=== PATIENT | female | born 1955 | race Caucasian/White ===

== ENCOUNTER 2024-01-25 08:45 | Day surgery (SDC) | payer OTHER ==
[~2024-01-25 08:45] MED LIST: Sodium Chloride 0.9% 10 ML Syringe FLUSH PRN; Sodium Chloride 0.9% 2.5 ML Syringe FLUSH PRN; Sodium Chloride 0.9% 20 ML SDV IV PRN
[2024-01-25] MEDS: Lactated Ringers 1,000 ML IV SCH (09:16)
[2024-01-25] MEDS ORDERED: Lidocaine 2% 5 ML SDV ONE (10:34)
[2024-01-25] MEDS ORDERED: Propofol 200 MG/20 ML SDV ONE ×2 (10:35)
[2024-01-25] MEDS ORDERED: Glycopyrrolate 0.2 MG/ML SDV ONE (10:54)
== END 2024-01-25 11:45 | disposition home or self-care (01) ==
LOC: MW.SDS 08:45
PROVIDERS: ATTEND Surgery
DX: K57.30 Diverticulosis of large intestine without perforation or abscess without bleeding (principal); Z86.0100 Personal history of colon polyps, unspecified; E78.00 Pure hypercholesterolemia, unspecified; E03.9 Hypothyroidism, unspecified; Z79.890 Hormone replacement therapy; Z79.899 Other long term (current) drug therapy; Z88.0 Allergy status to penicillin; Z88.8 Allergy status to other drugs, medicaments and biological substances
CPT/HCPCS: 45378; J2704; J7120; J3490